=== PATIENT | female | born 1940 | race African-American/Black ===

== ENCOUNTER 2017-07-21 16:26 | Inpatient (IN) | payer MEDICARE, OTHER ==
[~2017-07-21] VITALS: Ht 162.6 cm; Wt 64.6 kg
[2017-07-21 16:50] VITALS: BP 197/91; PULSE 93; RESP 18; TEMP 98.1; O2SAT 99
[2017-07-21] MEDS ORDERED: LORazepam 2 MG/ML VIAL IM ONE (17:15)
[2017-07-21] MEDS ORDERED: HALOPERIDOL LACTATE 5 MG/ML AMP IM ONE (17:15)
[2017-07-21 18:12] LABS: AUTOMATED NEUTROPHIL # 6.6 TH/MM3 (1.8-7.7); BASOPHIL # 0.1 TH/MM3 (0-0.2); BASOPHIL % 0.6 % (0.0-2.0); EOSINOPHIL % 0.3 % (0.0-4.0); HEMOGLOBIN 14.8 GM/DL (11.6-15.3); LYMPH % 30.1 % (9.0-44.0); LYMPHOCYTE # 3.2 TH/MM3 (1.0-4.8); MEAN CELL VOLUME 90.3 FL (80.0-100.0); MEAN CORPUSCULAR HEMOGLOBIN 31.9 PG (27.0-34.0); MEAN CORPUSCULAR HGB CONC 35.4 % (32.0-36.0); MEAN PLATELET VOLUME 7.9 FL (7.0-11.0); MONOCYTE # 0.6 TH/MM3 (0-0.9); PLATELET COUNT 316 TH/MM3 (150-450); RED BLOOD COUNT 4.65 MIL/MM3 (4.00-5.30); RED CELL DISTRIBUTION WIDTH 14.1 % (11.6-17.2); WHITE BLOOD COUNT 10.5 TH/MM3 (4.0-11.0)
[2017-07-21 18:23] LABS: ALBUMIN 3.9 GM/DL (3.4-5.0); AST (GOT) 17 U/L (15-37); BICARBONATE 23.7 MEQ/L (21.0-32.0); BLOOD UREA NITROGEN 13 MG/DL (7-18); CALCIUM 9.4 MG/DL (8.5-10.1); CHLORIDE 106 MEQ/L (98-107); CREATININE 1.31 MG/DL (0.50-1.00); GLOMERULAR FILTRATION RATE 48 ML/MIN (>89); GLUCOSE,RANDOM 102 MG/DL (74-106); SODIUM (NA) 140 MEQ/L (136-145)
[2017-07-21 18:24] LABS: ALT (GPT) 18 U/L (10-53)
[2017-07-21 18:26] LABS: ALKALINE PHOSPHATASE 60 U/L (45-117); TOTAL BILIRUBIN ADULT 0.5 MG/DL (0.2-1.0); TOTAL PROTEIN 7.6 GM/DL (6.4-8.2)
--- NOTE | 2017-07-21 19:35 | PD ---
HPI . Psychosis Chief Complaint: Psychiatric Symptoms Time Seen by Provider: 16:59 Travel History International Travel<30 days: No Contact w/Intl Traveler<30days: No Traveled to known affect area: No History of Present Illness HPI This patient is brought in by PD under a Vaughan Act. The Vaughan Act states that she was at the airport acting strangely. The police superintendent at the airport asked her where she wanted to fly and she stated "anywhere." She did not have a ticket. She seemed confused to the officer. She told the officers that they were "hitmen" and that she believes that they were going to sell her brain for money. They've been initiated a vaughan act and brought her to the hospital for further evaluation. Further history from this patient is not felt to be reliable. She was talking about how the [employer] was using her blood run machinery that could spy on people. She believes that the [employer] has been using her blood since 1981. PFSH Past Medical History Medical History: Unable to Obtain Tetanus Vaccination: > 5 Years Influenza Vaccination: No ?: Not Past Surgical History Surgical History: No Previous Surgery Social History Alcohol Use: No Tobacco Use: Yes (1 PPD) Substance Use: No Allergies-Medications (Allergen,Severity, Reaction): Coded Allergies: No Known Allergies (Verified Allergy, Unknown, 07/21/17) Reported Meds & Prescriptions Reported Meds & Active Scripts Active Active Prescriptions or Reported Medications Unobtainable Review of Systems ROS Limitations: Psychotic Physical Exam Narrative GENERAL: Awake and alert and in no acute distress. SKIN: Warm and dry. Good color and turgor. HEAD: Normocephalic/atraumatic. EYES: Pupils are equal. Extraocular movements are intact. NECK: Normal range of motion. CARDIOVASCULAR: Regular rate and rhythm. RESPIRATORY: Nonlabored respirations. Lungs are clear. ABDOMEN: Abdomen is soft. MUSCULOSKELETAL: Atraumatic. NEUROLOGICAL: Alert. No obvious cranial nerve deficits. She is moving all 4 extremities equally. PSYCHIATRIC: She is delusional. Her behavior occasionally escalates. She is very fearful of having her blood drawn. Data Data Last Documented VS Vital Signs Date Time Temp Pulse Resp B/P (MAP) Pulse Ox O2 Delivery O2 Flow Rate FiO2 07/21/17 16:55 87 18 07/21/17 16:50 98.1 197/91 (126) 99 Orders Orders Lorazepam Inj (Ativan Inj) (07/21/17 17:15) Haloperidol Inj (Haldol Inj) (07/21/17 17:15) Restraints Non-Violent ALICIA.Q3H (07/21/17 17:15) Complete Blood Count With Diff (07/21/17 17:16) Comprehensive Metabolic Panel (07/21/17 17:16) Iv Access Insert/Monitor (07/21/17 17:16) Cath For Specimen (07/21/17 17:16) Psych Screen (07/21/17 17:16) Drug Screen, Random Urine (07/21/17 17:16) Alcohol (Ethanol) (07/21/17 17:16) Ct Brain W/O Iv Contrast(Rout) (07/21/17 17:16) Labs Laboratory Tests Test 07/21/17 17:35 07/21/17 17:45 White Blood Count 10.5 TH/MM3 Red Blood Count 4.65 MIL/MM3 Hemoglobin 14.8 GM/DL Hematocrit 42.0 % Mean Corpuscular Volume 90.3 FL Mean Corpuscular Hemoglobin 31.9 PG Mean Corpuscular Hemoglobin Concent 35.4 % Red Cell Distribution Width 14.1 % Platelet Count 316 TH/MM3 Mean Platelet Volume 7.9 FL Neutrophils (%) (Auto) 63.0 % Lymphocytes (%) (Auto) 30.1 % Monocytes (%) (Auto) 6.0 % Eosinophils (%) (Auto) 0.3 % Basophils (%) (Auto) 0.6 % Neutrophils # (Auto) 6.6 TH/MM3 Lymphocytes # (Auto) 3.2 TH/MM3 Monocytes # (Auto) 0.6 TH/MM3 Eosinophils # (Auto) 0.0 TH/MM3 Basophils # (Auto) 0.1 TH/MM3 CBC Comment DIFF FINAL Differential Comment Blood Urea Nitrogen 13 MG/DL Creatinine 1.31 MG/DL Random Glucose 102 MG/DL Total Protein 7.6 GM/DL Albumin 3.9 GM/DL Calcium Level 9.4 MG/DL Alkaline Phosphatase 60 U/L Aspartate Amino Transf (AST/SGOT) 17 U/L Alanine Aminotransferase (ALT/SGPT) 18 U/L Total Bilirubin 0.5 MG/DL Sodium Level 140 MEQ/L Potassium Level 4.0 MEQ/L Chloride Level 106 MEQ/L Carbon Dioxide Level 23.7 MEQ/L Anion Gap 10 MEQ/L Estimat Glomerular Filtration Rate 48 ML/MIN Ethyl Alcohol Level LESS THAN 3 MG/DL Urine Opiates Screen NEG Urine Barbiturates Screen NEG Urine Amphetamines Screen NEG Urine Benzodiazepines Screen NEG Urine Cocaine Screen NEG Urine Cannabinoids Screen NEG MDM Medical Decision Making Medical Screen Exam Complete: Yes Emergency Medical Condition: Yes Differential Diagnosis Differential diagnosis of psychosis includes but is not limited to schizophrenia , schizoaffective disorder, bipolar disorder, intoxication, substance abuse, dementia Narrative Course This patient presents to us as a Vaughan Act. She is obviously psychotic. She has no previous visits here. Therefore, in addition to doing the routine blood work for medical clearance, I have ordered a CT of her brain. CBC & BMP Diagram 07/21/17 17:35 Total Protein 7.6, Albumin 3.9, Calcium Level 9.4, Alkaline Phosphatase 60, Aspartate Amino Transf (AST/SGOT) 17, Alanine Aminotransferase (ALT/SGPT) 18, Total Bilirubin 0.5 Tox screen is negative. CT: 1. Limited examination due to patient motion. 2. No gross acute intracranial abnormality. She is medically clear for psychiatric evaluation. Diagnosis Primary Impression: Psychosis Qualified Codes: F29 - Unspecified psychosis not due to a substance or known physiological condition Scripts Unable to Obtain Active Prescriptions or Reported Meds Condition: Adelaida Bennett MD Jul 21, 2017 19:35
--- NOTE | 2017-07-21 19:38 | RADRPT ---
EXAM DATE/TIME: 07/21/2017 19:23 [facility] COMPARISON: No previous studies available for comparison. INDICATIONS : Altered mental status with confusion. RADIATION DOSE: 34.39 CTDIvol (mGy) MEDICAL HISTORY : None SURGICAL HISTORY : None. ENCOUNTER: Initial ACUITY: 1 day PAIN SCALE: 2/10 LOCATION: Bilateral cranial TECHNIQUE: Multiple contiguous axial images were obtained of the head. Using automated exposure control and adj ustment of the mA and/or kV according to patient size, radiation dose was kept as low as reasonably a chievable to obtain optimal diagnostic quality images. DICOM format image data is available electro nically for review and comparison. FINDINGS: Examination is limited by patient motion. CEREBRUM: Moderate diffuse cerebral volume loss. The ventricles are normal for degree of atrophy. No evidence of midline shift, gross mass lesion, significant hemorrhage or acute infarction. No extra-axial flui d collections are seen. POSTERIOR FOSSA: The cerebellum and brainstem are intact. The 4th ventricle is midline. The cerebellopontine angle i s unremarkable. EXTRACRANIAL: The visualized portion of the orbits is intact. SKULL: The calvaria is intact. No evidence of skull fracture. CONCLUSION: 1. Limited examination due to patient motion. 2. No gross acute intracranial abnormality. Baron Robertson MD on July 21, 2017 at 19:35 Board Certified Radiologist. This report was verified electronically.
[2017-07-21] MEDS ORDERED: IBUP-1129 PO (22:19)
[2017-07-21] MEDS ORDERED: SULF1TAB23 PO (22:19)
[2017-07-21] MEDS ORDERED: GUAI1SOL7 PO (22:19)
[2017-07-21] MEDS ORDERED: ASPI-183 PO (22:19)
[2017-07-22 05:30] VITALS: BP 141/72; PULSE 69; RESP 18; O2SAT 98
[2017-07-22 11:40] VITALS: BP 138/70; PULSE 70; RESP 18; O2SAT 97
[2017-07-22] MEDS ORDERED: traZODone HCL 50 MG TAB PO PRN (13:00)
[2017-07-22] MEDS ORDERED: MAGNESIUM HYDROXIDE SUSP 30 ML CUP PO PRN (13:00)
[2017-07-22] MEDS ORDERED: diphenhydrAMINE HCL 50 MG/ML VIAL IM PRN (13:00)
[2017-07-22] MEDS ORDERED: LORazepam 2 MG/ML VIAL IM PRN (13:00)
[2017-07-22] MEDS ORDERED: diphenhydrAMINE HCL 50 MG CAP PO PRN (13:00)
[2017-07-22] MEDS ORDERED: ALUMINUM/MAGNESIUM/SIMETH 30 ML CUP PO PRN (13:00)
[2017-07-22] MEDS ORDERED: LORazepam 1 MG TAB PO PRN (13:00)
[2017-07-22] MEDS ORDERED: guaiFENesin/CODEINE SYRUP 200 MG/20 MG/10 ML CUP PO PRN (13:15)
--- NOTE | 2017-07-22 13:21 | HHI.HP ---
Provisional Diagnosis Admission Date Jul 22, 2017 at 13:00 [place] I. Paranoid schizophrenia Certification of Person's Competence To Provide Express and Informed Consent I have personally examined Whit Iyer , a person being served at [facility] on, Jul 22, 2017 13:04. Express and informed consent means consent voluntarily given in writing, by a competent person, after sufficient explanation and disclosure of the subject matter involved to enable the person to make a knowing and willful decision without any element of force, fraud, deceit, duress, or other form of constraint or coercion. This person is 18 years of age or older, is not now known to be incompetent to consent to treatment with a guardian advocate, and does not have a health care surrogate or proxy currently making medical treatment decisions. I have found this person to be one of the following: [] Competent to provide express and informed consent, as defined above, for voluntary admission to this facility and is competent to provide express and informed consent for treatment. He/she has the consistent capacity to make well reasoned, willful, and knowing decisions concerning his or her medical or mental health treatment. The person fully and consistently understands the purpose of the admission for examination/placement and is fully capable of personally exercising all rights assured [place] [x] Incompetent to provide express and informed consent to voluntary admission, and this is incompetent to provide express and informed consent to treatment. The person must be transferred to involuntary status and a petition for a guardian advocate filed with the Circuit Court. [] Refusing to provide express and informed consent to voluntary admission but is competent to provide express and informed consent for treatment. The person must be discharged or transferred to involuntary status. Form shall be completed within 24 hours of a person's arrival at the receiving facility and filed in the clinical record of each person: 1. Admitted on a voluntary basis 2. Permitted to provide express and informed consent to his/her own treatment 3. Allowed to transfer from involuntary to voluntary status 4. Prior to permitting a person to consent to his or her own treatment after having been previously found incompetent to consent to treatment. History of Present Illness Capacity: Lacks Capacity HPI 77-year-old female, [place] acted by law enforcement at the local airport. Patient had apparently packed her bags, was stating she wanted to go "anywhere" but did not have a ticket and appeared confused, psychotic and paranoid. She told the officer there were hit men trying to sell her brain for money. She also indicated others were trying to harm her and that there were cameras watching her. Upon interview, the patient is not aware of the current day of the week, date, year or place where she is currently being evaluated. She does not know the current president. The patient is reportedly homeless but stays in hotels and wanders from place to place and state to state. The patient is felt to be an unreliable historian however. She claims at this time that she does not have a mental illness and that the diagnosis of schizophrenia, contained on her record , is from [place]. She demonstrates loose associations and remarks that she must have that schizophrenia diagnosis removed as it is a lie committed by the people who are trying to harm her, steal from her, etc. She is obviously unable to care for herself and quite delusional. The patient does have adult children who live out of state and her daughter was contacted by our emergency department staff to [phone], [place]. Patient's daughter confirms the patient's mental illness and inappropriate behavior. No evidence of alcohol or illicit drugs. Review of Systems ROS Limitations: Clinical Condition Psychiatric: COMPLAINS OF: Confusion, Delusions Except as stated in HPI: all other systems reviewed are Neg Past Psych History Psychological trauma history Unknown psychological trauma. Patient poor historian. Violence risk - others (6 mos) Minimal to moderate. Violence risk - self (6 mos) Moderate to high. Patient is confused enough to do dangerous things, including walking into traffic. Substance Abuse History Drugs/Alcohol past 12 months Denied Past Family Social History Coded Allergies: No Known Allergies (Verified Allergy, Unknown, 07/21/17) Reported Medications Sulfamethoxazole-Trimethoprim (Sulfamethoxazole-Trimethoprim) 800-160 Mg Tab, 1 TAB PO BID for Infection, TAB 0 Refills 07/21/17 Guaifenesin-Codeine Liq (Virtussin A-C Liq) 100-10 Mg/5 Ml Soln, 5-10 ML PO Q8H Y for COUGH, #1 BOTTLE 0 Refills 07/21/17 Ibuprofen (Motrin Ib) 200 Mg Tablet, PO 07/21/17 Aspirin (Aspirin) 325 Mg Tab, 325 MG PO DAILY, #30 TAB 0 Refills 07/21/17 Current Medications Medications (Trade) Dose Ordered Sig/Yasmany Route Start Time Stop Time Status Last Admin (Ativan) 1 mg Q6H PRN PO 07/22/17 13:00 UNV (Ativan Inj) 1 mg Q6H PRN IM 07/22/17 13:00 UNV (Benadryl) 50 mg Q6H PRN PO 07/22/17 13:00 UNV (Benadryl Inj) 50 mg Q6H PRN IM 07/22/17 13:00 UNV (Tylenol) 650 mg Q4H PRN PO 07/22/17 13:00 (Milk Of Magnesia Liq) 30 ml DAILY PRN PO 07/22/17 13:00 (Mag-Al Plus Susp Liq) 30 ml Q6H PRN PO 07/22/17 13:00 (Desyrel) 50 mg HS PRN PO 07/22/17 13:00 UNV Family Psych History Positive for mental illness of a psychotic subtype. 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 She states she does not live there and intends to move back to [place]. She is unemployed and obviously disabled mentally from the ability to work. She does receive Social Security disability. She states she is a . She does have children who are supportive but unable to assist her at all times. Patient apparently travels about "at [facility]". Patient's Strengths (min. 2) Verbal and has access to healthcare. Physical Exam GENERAL: SKIN: Warm and dry. HEAD: Normocephalic. EYES: No scleral icterus. No injection or drainage. NECK: Supple, trachea midline. No JVD or lymphadenopathy. CARDIOVASCULAR: Regular rate and rhythm without murmurs, gallops, or rubs. RESPIRATORY: Breath sounds equal bilaterally. No accessory muscle use. GASTROINTESTINAL: Abdomen soft, non-tender, nondistended. MUSCULOSKELETAL: No cyanosis, or edema. BACK: Nontender without obvious deformity. No CVA tenderness. Vital Signs Vital Signs Date Time Temp Pulse Resp B/P (MAP) Pulse Ox O2 Delivery O2 Flow Rate FiO2 07/22/17 11:40 70 18 138/70 (92) 97 Room Air 07/21/17 16:50 98.1 Lab Results Test 07/21/17 17:35 07/21/17 17:45 White Blood Count 10.5 TH/MM3 Red Blood Count 4.65 MIL/MM3 Hemoglobin 14.8 GM/DL Hematocrit 42.0 % Mean Corpuscular Volume 90.3 FL Mean Corpuscular Hemoglobin 31.9 PG Mean Corpuscular Hemoglobin Concent 35.4 % Red Cell Distribution Width 14.1 % Platelet Count 316 TH/MM3 Mean Platelet Volume 7.9 FL Neutrophils (%) (Auto) 63.0 % Lymphocytes (%) (Auto) 30.1 % Monocytes (%) (Auto) 6.0 % Eosinophils (%) (Auto) 0.3 % Basophils (%) (Auto) 0.6 % Neutrophils # (Auto) 6.6 TH/MM3 Lymphocytes # (Auto) 3.2 TH/MM3 Monocytes # (Auto) 0.6 TH/MM3 Eosinophils # (Auto) 0.0 TH/MM3 Basophils # (Auto) 0.1 TH/MM3 CBC Comment DIFF FINAL Differential Comment Blood Urea Nitrogen 13 MG/DL Creatinine 1.31 MG/DL Random Glucose 102 MG/DL Total Protein 7.6 GM/DL Albumin 3.9 GM/DL Calcium Level 9.4 MG/DL Alkaline Phosphatase 60 U/L Aspartate Amino Transf (AST/SGOT) 17 U/L Alanine Aminotransferase (ALT/SGPT) 18 U/L Total Bilirubin 0.5 MG/DL Sodium Level 140 MEQ/L Potassium Level 4.0 MEQ/L Chloride Level 106 MEQ/L Carbon Dioxide Level 23.7 MEQ/L Anion Gap 10 MEQ/L Estimat Glomerular Filtration Rate 48 ML/MIN Ethyl Alcohol Level LESS THAN 3 MG/DL Urine Opiates Screen NEG Urine Barbiturates Screen NEG Urine Amphetamines Screen NEG Urine Benzodiazepines Screen NEG Urine Cocaine Screen NEG Urine Cannabinoids Screen NEG Mental Status Examination Appearance: Disheveled Consciousness: Alert Orientation: Person Motor Activity: Normal gait Speech: Hesitant Language: Perseveration Fund of Knowledge: Adequate Attention and Concentration: Easily Distracted Memory: Impaired Mood: Anxious Affect: Anxious Thought Process & Associations: Loose associations Thought Content: Bizarre thinking, Delusional Hallucination Type: None Delusion Type: Paranoid Suicidal Ideation: No Suicidal Plan: No Suicidal Intention: No Homicidal Ideation: No Homicidal Plan: No Homicidal Intention: No Insight: Poor Judgment: Poor Assessment & Plan Problem List: (1) Schizophrenia, paranoid type ICD Codes: F20.0 - Paranoid schizophrenia Assessment & Plan Estimated LOS: days. 77-year-old female with long history of paranoid schizophrenia, obviously paranoid, obviously confused and disoriented and obviously unable to care for herself. For these reasons, the patient is being admitted for further evaluation and treatment. This physician has asked for a hep us consult as the patient appears to have been prescribed an antibiotic and a daily aspirin for blood thinning. Due to the fact she is a poor historian, this physician is concerned about her underlying physical maladies. This physician also ordered a CBC and comprehensive metabolic panel to determine if any infectious process or metabolic process is causing or contributing to the patient's psychosis. Also ordered were thyroid-stimulating hormone levels, vitamin B-12 and vitamin D levels, as deficiencies in these areas can cause or contribute to her confusion and psychosis. Furthermore, this physician initiated civil commitment procedure with guardian advocate as the patient is felt not to be competent to provide informed consent. Additionally, an EKG is ordered prior to the administration of psychotropic medicines which might adversely affect the conduction system of her heart. This physician spoke with the patient's nurse, Elizabeth, regarding her recent behavior. Case management is also being involved to assist with further information gathering and appropriate disposition planning. Brian Villagomez MD Jul 22, 2017 13:21
--- NOTE | 2017-07-22 14:48 | PD.PSY.CON ---
Provisional Diagnosis Admission Date Jul 22, 2017 at 13:00 Eunice I. Paranoid schizophrenia History of Present Illness Service Psychiatry Consult Requested By Dr. Villagomez Reason for Consult Second opinion Primary Care Physician No Primary Care Physician HPI 77-year-old female, [place] acted by law enforcement at the local airport. Patient had apparently packed her bags, was stating she wanted to go "anywhere" but did not have a ticket and appeared confused, psychotic and paranoid. She told the officer there were hit men trying to sell her brain for money. She also indicated others were trying to harm her and that there were cameras watching her.Upon interview, the patient is not aware of the current day of the week, date, year or place where she is currently being evaluated. She does not know the current president. The patient is reportedly homeless but stays in hotels and wanders from place to place and state to state. The patient is felt to be an unreliable historian however. She claims at this time that she does not have a mental illness and that the diagnosis of schizophrenia , contained on her record, is from [place]. She demonstrates loose associations and remarks that she must have that schizophrenia diagnosis removed as it is a lie committed by the people who are trying to harm her, steal from her, etc. She is obviously unable to care for herself and quite delusional. The patient does have adult children who live out of state and her daughter was contacted by our emergency department staff to [phone], Phuong Smith. Patient's daughter confirms the patient's mental illness and inappropriate behavior. No evidence of alcohol or illicit drugs. The Patient is a 77 year-old woman, homeless, unemployed, single, with psychiatric history fo schizophrenia, who was brought in by PD under a Vaugh[place] Act. The [place] Act states that she was at the airport acting strangely. The patrol police lieutenant at the airport asked her where she wanted to fly and she stated "anywhere." She did not have a ticket. She seemed confused to the officer. She told the officers that they were "hitmen" and that she believes that they were going to sell her brain for money. They've been initiated a vaughan act and brought her to the hospital for further evaluation. She was consulted to me for second opinion. She is oppositional and irritable. She says the police brought her here "accusing me of being lost, but he true is they were harassing me". She is very talkative with loosening of associations and derailment. Review of Systems Constitutional: DENIES: Diaphoretic episodes, Fatigue, Fever, Weight gain, Weight loss, Chills, Dizziness, Change in appetite, Night Sweats Endocrine: DENIES: Abnorml menstrual pattern, Heat/cold intolerance, Polydipsia , Polyuria, Polyphagia Eyes: DENIES: Blurred vision, Diplopia, Eye inflammation, Eye pain, Vision loss , Photosensitivity, Double Vision Ears, nose, mouth, throat: DENIES: Tinnitus, Hearing loss, Vertigo, Nasal discharge, Oral lesions, Throat pain, Hoarseness, Ear Pain, Running Nose, Epistaxis, Sinus Pain, Toothache, Odynophagia Respiratory: DENIES: Apneas, Cough, Snoring, Wheezing, Hemoptysis, Sputum production, Shortness of breath Cardiovascular: DENIES: Chest pain, Palpitations, Syncope, Dyspnea on Exertion , PND, Lower Extremity Edema, Orthopnea, Claudication Gastrointestinal: DENIES: Abdominal pain, Black stools, Bloody stools, Constipation, Diarrhea, Nausea, Vomiting, Difficulty Swallowing, Anorexia Genitourinary: DENIES: Abnormal vaginal bleeding, Dysmenorrhea, Dyspareunia, Sexual dysfunction, Urinary frequency, Urinary incontinence, Urgency, Hematuria , Dysuria, Nocturia, Vaginal discharge Musculoskeletal: DENIES: Joint pain, Muscle aches, Stiffness, Joint Swelling, Back pain, Neck pain Integumentary: DENIES: Abnormal pigmentation, Pruritus, Rash, Nail changes, Breast masses, Breast skin changes, Nipple discharge Hematologic/lymphatic: DENIES: Bruising, Lymphadenopathy Immunologic/allergic: DENIES: Eczema, Urticaria Neurologic: DENIES: Abnormal gait, Headache, Localized weakness, Paresthesias, Seizures, Speech Problems, Tremor, Poor Balance Psychiatric: COMPLAINS OF: Delusions Past Family Social History Coded Allergies: No Known Allergies (Verified Allergy, Unknown, 07/21/17) Reported Medications Sulfamethoxazole-Trimethoprim (Sulfamethoxazole-Trimethoprim) 800-160 Mg Tab, 1 TAB PO BID for Infection, TAB 0 Refills 07/21/17 Guaifenesin-Codeine Liq (Virtussin A-C Liq) 100-10 Mg/5 Ml Soln, 5-10 ML PO Q8H Y for COUGH, #1 BOTTLE 0 Refills 07/21/17 Ibuprofen (Motrin Ib) 200 Mg Tablet, PO 07/21/17 Aspirin (Aspirin) 325 Mg Tab, 325 MG PO DAILY, #30 TAB 0 Refills 07/21/17 Current Medications Medications (Trade) Dose Ordered Sig/Yasmany Route Start Time Stop Time Status Last Admin (Ativan) 1 mg Q6H PRN PO 07/22/17 13:00 (Ativan Inj) 1 mg Q6H PRN IM 07/22/17 13:00 (Benadryl) 50 mg Q6H PRN PO 07/22/17 13:00 (Benadryl Inj) 50 mg Q6H PRN IM 07/22/17 13:00 (Tylenol) 650 mg Q4H PRN PO 07/22/17 13:00 (Milk Of Magnesia Liq) 30 ml DAILY PRN PO 07/22/17 13:00 (Mag-Al Plus Susp Liq) 30 ml Q6H PRN PO 07/22/17 13:00 (Desyrel) 50 mg HS PRN PO 07/22/17 13:00 (Aspirin) 325 mg DAILY PO 07/23/17 09:00 (Robitussin Ac 200-20 Mg/10 ml Liq) 10 ml Q8H PRN PO 07/22/17 13:15 07/25/17 07:00 Patient's Strengths (min. 2) Verbal and has access to healthcare. Physical Exam Vital Signs Vital Signs Date Time Temp Pulse Resp B/P (MAP) Pulse Ox O2 Delivery O2 Flow Rate FiO2 07/22/17 11:40 70 18 138/70 (92) 97 Room Air 07/21/17 16:50 98.1 Lab Results Test 07/21/17 17:35 07/21/17 17:45 White Blood Count 10.5 TH/MM3 Red Blood Count 4.65 MIL/MM3 Hemoglobin 14.8 GM/DL Hematocrit 42.0 % Mean Corpuscular Volume 90.3 FL Mean Corpuscular Hemoglobin 31.9 PG Mean Corpuscular Hemoglobin Concent 35.4 % Red Cell Distribution Width 14.1 % Platelet Count 316 TH/MM3 Mean Platelet Volume 7.9 FL Neutrophils (%) (Auto) 63.0 % Lymphocytes (%) (Auto) 30.1 % Monocytes (%) (Auto) 6.0 % Eosinophils (%) (Auto) 0.3 % Basophils (%) (Auto) 0.6 % Neutrophils # (Auto) 6.6 TH/MM3 Lymphocytes # (Auto) 3.2 TH/MM3 Monocytes # (Auto) 0.6 TH/MM3 Eosinophils # (Auto) 0.0 TH/MM3 Basophils # (Auto) 0.1 TH/MM3 CBC Comment DIFF FINAL Differential Comment Blood Urea Nitrogen 13 MG/DL Creatinine 1.31 MG/DL Random Glucose 102 MG/DL Total Protein 7.6 GM/DL Albumin 3.9 GM/DL Calcium Level 9.4 MG/DL Alkaline Phosphatase 60 U/L Aspartate Amino Transf (AST/SGOT) 17 U/L Alanine Aminotransferase (ALT/SGPT) 18 U/L Total Bilirubin 0.5 MG/DL Sodium Level 140 MEQ/L Potassium Level 4.0 MEQ/L Chloride Level 106 MEQ/L Carbon Dioxide Level 23.7 MEQ/L Anion Gap 10 MEQ/L Estimat Glomerular Filtration Rate 48 ML/MIN Ethyl Alcohol Level LESS THAN 3 MG/DL Urine Opiates Screen NEG Urine Barbiturates Screen NEG Urine Amphetamines Screen NEG Urine Benzodiazepines Screen NEG Urine Cocaine Screen NEG Urine Cannabinoids Screen NEG Mental Status Examination Appearance: Disheveled Consciousness: Alert Orientation: Person Motor Activity: Normal gait Speech: Hesitant Language: Perseveration Fund of Knowledge: Adequate Attention and Concentration: Easily Distracted Memory: Impaired Mood: Anxious Affect: Anxious Thought Process & Associations: Loose associations Thought Content: Bizarre thinking, Delusional Hallucination Type: None Delusion Type: Paranoid Suicidal Ideation: No Suicidal Plan: No Suicidal Intention: No Homicidal Ideation: No Homicidal Plan: No Homicidal Intention: No Insight: Poor Judgment: Poor Assessment & Plan Problem List: (1) Schizophrenia, paranoid type ICD Codes: F20.0 - Paranoid schizophrenia Assessment & Plan: I have seen and examined this patient in the ER. Reviwed documentation and I agree and concur with Dr. Villagomez's assessment and plan. Assessment & Plan Estimated LOS: Juwan Pimentel MD Jul 22, 2017 14:48
[2017-07-22 15:25] VITALS: BP 129/72
[2017-07-22 15:35] VITALS: BP 138/80; PULSE 88; RESP 18; TEMP 98.1; O2SAT 95
--- NOTE | 2017-07-22 15:37 | PD.CONS ---
[facility] By Dr. Vill[facility] Reason for Consult "77 year old female with history of schizophrenia, poor historian, but history of medical issues. Please evaluate and treat as necessary." Primary Care Physician No Primary Care Physician Diagnoses: (1) Psychosis (2) Schizophrenia, paranoid type (3) Tobacco abuse (4) Renal insufficiency History of Present Illness Patient is a 77-year-old female with history of schizophrenia who was brought to the emergency department under Vaughan act by the Police Department area and she apparently had been at the airport stating that she was going to fly "anywhere", but did not have a ticket. She then apparently accused the police officers of being hit men. Upon my evaluation of the patient she denies any complaints. States that she has no chronic medical problems and takes no medications regularly. She denies having any surgeries. She denies any family history of medical problems. Review of Systems ROS Limitations: Psychotic Constitutional: DENIES: Fever, Chills, Night Sweats Eyes: DENIES: Blurred vision, Vision loss Ears, nose, mouth, throat: DENIES: Hearing loss Respiratory: DENIES: Cough, Wheezing, Sputum production, Shortness of breath Cardiovascular: DENIES: Chest pain, Palpitations, Dyspnea on Exertion, Lower Extremity Edema Gastrointestinal: DENIES: Abdominal pain, Constipation, Diarrhea, Nausea, Vomiting Genitourinary: DENIES: Urinary frequency, Urinary incontinence, Urgency, Hematuria, Dysuria, Nocturia Musculoskeletal: DENIES: Joint pain, Muscle aches Integumentary: DENIES: Pruritus, Rash Hematologic/lymphatic: DENIES: Bruising Neurologic: DENIES: Headache Past Family Social History Allergies: Coded Allergies: No Known Allergies (Verified Allergy, Unknown, 07/21/17) Past Medical History Schizophrenia Past Surgical History Denies Reported Medications Denies Medication reconciliation obtained by the ER nurse lists Bactrim, aspirin, ibuprofen, and guaifenesin with codeine. Family History Patient denies significant family medical history. Social History She states that she smokes 5 cigarettes per day. Denies alcohol or illicit drug use. Physical Exam Vital Signs Vital Signs Date Time Temp Pulse Resp B/P (MAP) Pulse Ox O2 Delivery O2 Flow Rate FiO2 07/22/17 11:40 70 18 138/70 (92) 97 Room Air 07/22/17 05:30 69 18 141/72 (95) 98 Room Air 07/21/17 16:55 87 18 07/21/17 16:50 98.1 93 18 197/91 (126) 99 Physical Exam GENERAL: Elderly female in no acute distress. HEENT: Normocephalic, atraumatic. Pupils equal, round and reactive. Extraocular movements intact. No scleral icterus. No injection or drainage. Oropharynx is clear. Mucous membranes are moist. CARDIOVASCULAR: Regular rate and rhythm without murmurs, gallops, or rubs. RESPIRATORY: Clear to auscultation. No wheezes, rales, or rhonchi. Breathing is non-labored. GASTROINTESTINAL: Abdomen soft, non-tender, nondistended. EXTREMITIES: No lower extremity edema. No calf tenderness. PSYCH: Alert. Oriented to year, month, city. She is aware that she is in the hospital. Laboratory Laboratory Tests Test 07/21/17 17:35 07/21/17 17:45 White Blood Count 10.5 Red Blood Count 4.65 Hemoglobin 14.8 Hematocrit 42.0 Mean Corpuscular Volume 90.3 Mean Corpuscular Hemoglobin 31.9 Mean Corpuscular Hemoglobin Concent 35.4 Red Cell Distribution Width 14.1 Platelet Count 316 Mean Platelet Volume 7.9 Neutrophils (%) (Auto) 63.0 Lymphocytes (%) (Auto) 30.1 Monocytes (%) (Auto) 6.0 Eosinophils (%) (Auto) 0.3 Basophils (%) (Auto) 0.6 Neutrophils # (Auto) 6.6 Lymphocytes # (Auto) 3.2 Monocytes # (Auto) 0.6 Eosinophils # (Auto) 0.0 Basophils # (Auto) 0.1 CBC Comment DIFF FINAL Differential Comment Blood Urea Nitrogen 13 Creatinine 1.31 Random Glucose 102 Total Protein 7.6 Albumin 3.9 Calcium Level 9.4 Alkaline Phosphatase 60 Aspartate Amino Transf (AST/SGOT) 17 Alanine Aminotransferase (ALT/SGPT) 18 Total Bilirubin 0.5 Sodium Level 140 Potassium Level 4.0 Chloride Level 106 Carbon Dioxide Level 23.7 Anion Gap 10 Estimat Glomerular Filtration Rate 48 Ethyl Alcohol Level LESS THAN 3 Urine Opiates Screen NEG Urine Barbiturates Screen NEG Urine Amphetamines Screen NEG Urine Benzodiazepines Screen NEG Urine Cocaine Screen NEG Urine Cannabinoids Screen NEG Result Diagram: 07/21/17 1735 07/21/17 1735 Imaging Last Impressions Head CT 07/21/17 1716 Signed Impressions: Service Date/Time: Friday, July 21, 2017 19:23 - CONCLUSION: 1. Limited examination due to patient motion. 2. No gross acute intracranial abnormality. Baron Robertson MD Assessment and Plan Assessment and Plan 1. Schizophrenia, psychosis: Patient admitted under Vaughan act. Management per psychiatry. CT of the head shows no gross acute intracranial abnormality, but is limited due to patient motion. 2. The patient denies any chronic medical problems. She states that she does not take any medications. The ER nurse last night documented in the patient's medication reconciliation that she takes Bactrim and aspirin. I was not able to obtain any further information regarding any possible infection from the patient. At this point is undetermined when she was given the Bactrim and why she was prescribed antibiotic. No apparent signs of infection at this time. Patient is afebrile. White blood cell count is within normal limits. 3. Renal insufficiency: Uncertain if this is acute or chronic as there are no labs available for comparison. 4. Elevated blood pressure: The patient's blood pressure was elevated initially on presentation to the ER. This could be secondary to agitation. Most recent blood pressure documented is much better. Monitor vital signs. Problem Qualifiers (1) Psychosis: Qualified Codes: F29 - Unspecified psychosis not due to a substance or known physiological condition Jt Manjarrez MD Jul 22, 2017 15:37
[2017-07-23 05:46] VITALS: BP 143/63; PULSE 75; RESP 16; TEMP 98.3; O2SAT 97
[2017-07-23] MEDS: ACETAMINOPHEN 325 MG TAB PO PRN (06:55)
--- NOTE | 2017-07-23 08:16 | HHI.PYPN ---
Subjective Remarks Patient was seen today for psychiatric reevaluation. Chart reviewed. Vital signs and labs reviewed. Hospitalist consult appreciated. Case was discussed with nurse in charge. On psychiatric evaluation patient is found in her bed sleeping. She is easily arousable. Calm, superficially cooperative, irritable. She says that she prefers not to talk to me because "you have making speakerphone with an amplifier". She says that "I do not trust this placed, there are camaras microphones all over watching me". Patient says that she wants to be released "because I want to leave [place] and go to another state". At times the patient becomes very disorganized and tangential and needs to be redirected. She is oriented 3, without no attention deficit, no fluctuation of consciousness. She denies being diagnosed with schizophrenia in the past and refused to take medications. As per nursing team, the patient has been very paranoid and suspicious in the unit, internally stimulated, but no agitated or aggressive. Review of Systems Constitutional: DENIES: Diaphoretic episodes, Fatigue, Fever, Weight gain, Weight loss, Chills, Dizziness, Change in appetite, Night Sweats Endocrine: DENIES: Abnorml menstrual pattern, Heat/cold intolerance, Polydipsia , Polyuria, Polyphagia Eyes: DENIES: Blurred vision, Diplopia, Eye inflammation, Eye pain, Vision loss , Photosensitivity, Double Vision Ears, nose, mouth, throat: DENIES: Tinnitus, Hearing loss, Vertigo, Nasal discharge, Oral lesions, Throat pain, Hoarseness, Ear Pain, Running Nose, Epistaxis, Sinus Pain, Toothache, Odynophagia Respiratory: DENIES: Apneas, Cough, Snoring, Wheezing, Hemoptysis, Sputum production, Shortness of breath Cardiovascular: DENIES: Chest pain, Palpitations, Syncope, Dyspnea on Exertion , PND, Lower Extremity Edema, Orthopnea, Claudication Gastrointestinal: DENIES: Abdominal pain, Black stools, Bloody stools, Constipation, Diarrhea, Nausea, Vomiting, Difficulty Swallowing, Anorexia Genitourinary: DENIES: Abnormal vaginal bleeding, Dysmenorrhea, Dyspareunia, Sexual dysfunction, Urinary frequency, Urinary incontinence, Urgency, Hematuria , Dysuria, Nocturia, Vaginal discharge Musculoskeletal: DENIES: Joint pain, Muscle aches, Stiffness, Joint Swelling, Back pain, Neck pain Integumentary: DENIES: Abnormal pigmentation, Pruritus, Rash, Nail changes, Breast masses, Breast skin changes, Nipple discharge Hematologic/lymphatic: DENIES: Bruising, Lymphadenopathy Immunologic/allergic: DENIES: Eczema, Urticaria Neurologic: DENIES: Abnormal gait, Headache, Localized weakness, Paresthesias, Seizures, Speech Problems, Tremor, Poor Balance Psychiatric: COMPLAINS OF: Delusions Mental Status Examination Appearance: Disheveled Consciousness: Alert Orientation: Person Motor Activity: Normal gait Speech: Hesitant Language: Perseveration Fund of Knowledge: Adequate Attention and Concentration: Easily Distracted Memory: Impaired Mood: Anxious Affect: Anxious Thought Process & Associations: Loose associations, Tangential Thought Content: Bizarre thinking, Preoccupations, Delusional Hallucination Type: None Delusion Type: Paranoid Suicidal Ideation: No Suicidal Plan: No Suicidal Intention: No Homicidal Ideation: No Homicidal Plan: No Homicidal Intention: No Insight: Fair Judgment: Impulsive Results Vitals/IOs Vital Signs Date Time Temp Pulse Resp B/P (MAP) Pulse Ox O2 Delivery O2 Flow Rate FiO2 07/23/17 05:46 98.3 75 16 143/63 (89) 97 07/22/17 11:40 Room Air Assessment & Plan Problem List: (1) Schizophrenia, paranoid type ICD Codes: F20.0 - Paranoid schizophrenia Assessment & Plan: Patient is acutely delusional, disorganized, paranoid. No collateral information available at the moment. We'll start olanzapine 2.5 mg twice a day for psychosis. Will communicate with hospitalist to discuss the benefit of medication for hypertension. Brief supportive psychotherapy and psychoeducation provided. Labs reviewed. Assessment & Plan Estimated LOS: days Justification for Cont. Inpt. The patient is acutely psychotic, she needs to continue psychiatric hospitalization for stabilization and safety. Juwan Larson MD Jul 23, 2017 08:16
[2017-07-23] MEDS: OLANZapine 2.5 MG TAB PO SCH ×2 (09:00→21:30)
[2017-07-23] MEDS: amLODIPine BESYLATE 5 MG TAB PO SCH (11:15)
[2017-07-23] MEDS: ASPIRIN 325 MG TAB PO SCH (11:45)
--- NOTE | 2017-07-23 14:02 | EKG ---
Date Performed: 07/23/2017 Time Performed: 09:36:18 PTAGE: 77 years EKG: Sinus rhythm POSSIBLE RIGHT ATRIAL ENLARGEMENT RIGHT VENTRICULAR HYPERTROPHY POSSIBLE SEPTAL MYOCARDIAL INFARCTIO N , OF INDETERMINATE AGE ABNORMAL ECG Since PREVIOUS TRACING , no significant change noted PREVIOUS TRACIN07/22/2017 15.06 DOCTOR: Jere Gomez Interpretating Date/Time 07/23/2017 14:00:39
--- NOTE | 2017-07-23 14:02 | EKG ---
Date Performed: 07/22/2017 Time Performed: 15:06:32 PTAGE: 77 years EKG: Sinus rhythm MARKED LEFT AXIS DEVIATION POSSIBLE RIGHT VENTRICULAR CONDUCTION DELAY POSSIBLE SEPTAL MYOCARDIAL IN FARCTION ABNORMAL ECG NO PREVIOUS TRACING DOCTOR: Jere Gomez Interpretating Date/Time 07/23/2017 14:00:57
--- NOTE | 2017-07-23 14:18 | HHI.PR ---
Subjective Remarks Follow-up elevated blood pressure. The patient states that she does not have any medical problems. She denies any history of hypertension. She states that her blood pressure "has always been normal". She states "I don't like it here and I want to go home". She is refusing to have labs drawn. She is refusing antihypertensive medications. She denies chest pain, dyspnea, nausea, vomiting. Objective Vitals Vital Signs Date Time Temp Pulse Resp B/P (MAP) Pulse Ox O2 Delivery O2 Flow Rate FiO2 07/23/17 08:00 14 07/23/17 05:46 98.3 75 16 143/63 (89) 97 07/22/17 15:35 98.1 88 18 138/80 (99) 95 07/22/17 15:25 74 18 129/72 (91) 98 I/O 07/22/17 07/22/17 07/22/17 07/23/17 07/23/17 07/23/17 07:00 15:00 23:00 07:00 15:00 23:00 Intake Total 960 ml Balance 960 ml Intake Oral 960 ml Result Diagram: 07/21/17 1735 07/21/17 1735 Imaging Last Impressions Head CT 07/21/17 1716 Signed Impressions: Service Date/Time: Friday, July 21, 2017 19:23 - CONCLUSION: 1. Limited examination due to patient motion. 2. No gross acute intracranial abnormality. Baron Robertson MD Objective Remarks General: Elderly female in no acute distress. Heart: Regular rate and rhythm. No murmur. Lungs: Clear to auscultation bilaterally. No wheezes, rales, or rhonchi. Breathing is nonlabored. Abdomen: Soft, nontender, nondistended. Extremities: No lower extremity edema. Psych: Alert and oriented. Procedures None Urinary Catheter: No Vascular Central Line Catheter: No A/P Problem List: (1) Psychosis ICD Code: F29 - Unspecified psychosis not due to a substance or known physiological condition Status: Acute (2) Schizophrenia, paranoid type ICD Code: F20.0 - Paranoid schizophrenia (3) Tobacco abuse ICD Code: Z72.0 - Tobacco use (4) Renal insufficiency ICD Code: N28.9 - Disorder of kidney and ureter, unspecified Assessment and Plan 1. Schizophrenia, psychosis: Patient admitted under Vaughan act. Management per psychiatry. CT of the head shows no gross acute intracranial abnormality, but is limited due to patient motion. 2. The patient denies any chronic medical problems. She states that she does not take any medications. The ER nurse last night documented in the patient's medication reconciliation that she takes Bactrim and aspirin. I was not able to obtain any further information regarding any possible infection from the patient. At this point it is undetermined when she was given the Bactrim and why she was prescribed an antibiotic. No apparent signs of infection at this time. Patient is afebrile. White blood cell count is within normal limits. 3. Renal insufficiency: Uncertain if this is acute or chronic as there are no labs available for comparison. Patient is refusing follow-up labs today. 4. Elevated blood pressure: Blood pressure has been intermittently elevated. Amlodipine 5 mg daily ordered. Patient refusing medications. [facility] will sign off. Please reconsult if needed. Problem Qualifiers (1) Psychosis: Qualified Codes: F29 - Unspecified psychosis not due to a substance or known physiological condition Jt Manjarrez MD Jul 23, 2017 14:18
[2017-07-23 18:00] VITALS: BP 135/65; PULSE 74; RESP 16; TEMP 98; O2SAT 96
[2017-07-24 06:33] VITALS: BP 120/62; PULSE 80; RESP 16; TEMP 97.3; O2SAT 95
[2017-07-24] MEDS: OLANZapine 2.5 MG TAB PO SCH ×2 (09:07→20:32)
[2017-07-24] MEDS: amLODIPine BESYLATE 5 MG TAB PO SCH (09:07)
[2017-07-24] MEDS: ASPIRIN 325 MG TAB PO SCH (09:07)
--- NOTE | 2017-07-24 14:21 | HHI.PYPN ---
Subjective Remarks Pt seen and discussed with staff.Yesterday, pt [place] RN that the airport [place]. Today she told RN that someone was connected to the bones in her vagina and she was trying to pee them away. She refused medication yesterday but today was compliant. No SI/HI Mental Status Examination Appearance: Disheveled Consciousness: Alert Orientation: Person Motor Activity: Normal gait Speech: Hesitant Language: Perseveration Fund of Knowledge: Adequate Attention and Concentration: Easily Distracted Memory: Impaired Mood: Anxious Affect: Anxious Thought Process & Associations: Loose associations, Tangential Thought Content: Bizarre thinking, Preoccupations, Delusional Hallucination Type: None Delusion Type: Paranoid Suicidal Ideation: No Suicidal Plan: No Suicidal Intention: No Homicidal Ideation: No Homicidal Plan: No Homicidal Intention: No Insight: Fair Judgment: Impulsive Results Vitals/IOs Vital Signs Date Time Temp Pulse Resp B/P (MAP) Pulse Ox O2 Delivery O2 Flow Rate FiO2 07/24/17 06:33 97.3 80 16 120/62 (81) 95 07/22/17 11:40 Room Air Intake and Output 07/24/17 07/24/17 07/25/17 08:00 16:00 00:00 Intake Total 240 ml 240 ml Balance 240 ml 240 ml Assessment & Plan Problem List: (1) Schizophrenia, paranoid type ICD Codes: F20.0 - Paranoid schizophrenia Assessment & Plan Continue current tx plan. Estimated LOS: days Justification for Cont. Inpt. impairments in reality testing Sarah Fam MD Jul 24, 2017 14:21
[2017-07-25 06:16] VITALS: BP 108/57; PULSE 73; RESP 17; TEMP 97.7; O2SAT 100
[2017-07-25] MEDS: amLODIPine BESYLATE 5 MG TAB PO SCH (09:00)
[2017-07-25] MEDS: ASPIRIN 325 MG TAB PO SCH (09:41)
[2017-07-25] MEDS: OLANZapine 2.5 MG TAB PO SCH ×2 (09:42→21:59)
--- NOTE | 2017-07-25 15:59 | HHI.PYPN ---
Subjective Remarks Pt seen and discussed with staff. She has been less fixated on delusions, but has been paranoid about medications. She initially stated that she was not going to take them but was compliant. She has been out of room and participating in unit activities. She tells a rambling story about being "under mental health accusations for 5 years" in the past. She states that symptoms are due to "speakerphones and amplifiers". She gets agitated during interview with RN and MD and accuses police of using a "diagram" to scan her body. Mental Status Examination Appearance: Disheveled Consciousness: Alert Orientation: Person Motor Activity: Normal gait Speech: Hesitant Language: Perseveration Fund of Knowledge: Adequate Attention and Concentration: Easily Distracted Memory: Impaired Mood: Irritable Affect: Irritable Thought Process & Associations: Loose associations, Tangential Thought Content: Bizarre thinking, Preoccupations, Delusional Hallucination Type: None Delusion Type: Paranoid Suicidal Ideation: No Suicidal Plan: No Suicidal Intention: No Homicidal Ideation: No Homicidal Plan: No Homicidal Intention: No Insight: Fair Judgment: Impulsive Results Vitals/IOs Vital Signs Date Time Temp Pulse Resp B/P (MAP) Pulse Ox O2 Delivery O2 Flow Rate FiO2 07/25/17 06:16 97.7 73 17 108/57 (74) 100 07/22/17 11:40 Room Air Assessment & Plan Problem List: (1) Schizophrenia, paranoid type ICD Codes: F20.0 - Paranoid schizophrenia Assessment & Plan Continue current tx plan. Estimated LOS: days Justification for Cont. Inpt. impairments in reality testing Sarah Fam MD Jul 25, 2017 15:59
[2017-07-25] MEDS: NICOTINE 7 MG/24 HR PATCH T-DERMAL SCH (16:00)
[2017-07-25 16:30] VITALS: BP 135/63; PULSE 63; RESP 18; TEMP 98.3; O2SAT 97
[2017-07-25] MEDS ORDERED: REMOVE OLD PATCH T-DERMAL SCH (21:00)
[2017-07-26 06:03] VITALS: BP 133/73; PULSE 72; RESP 18; TEMP 98; O2SAT 96
[2017-07-26] MEDS: OLANZapine 2.5 MG TAB PO SCH ×2 (09:29→22:12)
[2017-07-26] MEDS: ASPIRIN 325 MG TAB PO SCH (09:29)
[2017-07-26] MEDS: amLODIPine BESYLATE 5 MG TAB PO SCH (09:29)
[2017-07-26] MEDS: REMOVE OLD PATCH T-DERMAL SCH (09:33)
[2017-07-26] MEDS: NICOTINE 7 MG/24 HR PATCH T-DERMAL SCH (09:33)
--- NOTE | 2017-07-26 15:16 | HHI.PYPN ---
Subjective Remarks Patient was seen today for psychiatric reevaluation. This case was discussed with nurse in charge. Documentation from weekend psychiatrist reviewed. On psychiatric evaluation today the patient is suspicious, very paranoid, was sent to be discharged immediately because she doesn't need to be here. She says that she doesn't trust the people in this hospital, she says that while she is here "people are trying to steal my money out there". As per nursing charge, the patient has been acting bizarre, delusional, very paranoid and disorganized , even though she has been compliant with her medications, and no significant side effects reported. The patient is partially oriented in time person and place. Mental Status Examination Appearance: Disheveled Consciousness: Alert Orientation: Person Motor Activity: Normal gait Speech: Hesitant Language: Perseveration Fund of Knowledge: Adequate Attention and Concentration: Easily Distracted Memory: Impaired Mood: Irritable Affect: Irritable Thought Process & Associations: Loose associations, Tangential Thought Content: Bizarre thinking, Preoccupations, Delusional Hallucination Type: None Delusion Type: Paranoid Suicidal Ideation: No Suicidal Plan: No Suicidal Intention: No Homicidal Ideation: No Homicidal Plan: No Homicidal Intention: No Insight: Fair Judgment: Impulsive Results Vitals/IOs Vital Signs Date Time Temp Pulse Resp B/P (MAP) Pulse Ox O2 Delivery O2 Flow Rate FiO2 07/26/17 06:03 98.0 72 18 133/73 (93) 96 07/22/17 11:40 Room Air Assessment & Plan Problem List: (1) Schizophrenia, paranoid type ICD Codes: F20.0 - Paranoid schizophrenia Assessment & Plan Estimated LOS: days Justification for Cont. Inpt. Patient is acutely psychotic, she needs to remain hospitalized for stabilization and safety. Juwan Larson MD Jul 26, 2017 15:16
[2017-07-26 17:00] VITALS: BP 170/74; PULSE 69; RESP 18; TEMP 97.9; O2SAT 98
[2017-07-26] MEDS: ACETAMINOPHEN 325 MG TAB PO PRN (18:13)
[2017-07-27 07:07] VITALS: BP 117/56; PULSE 60; RESP 17; TEMP 97.9; O2SAT 96
[2017-07-27] MEDS: amLODIPine BESYLATE 5 MG TAB PO SCH (08:32)
[2017-07-27] MEDS: ASPIRIN 325 MG TAB PO SCH (08:33)
[2017-07-27] MEDS: REMOVE OLD PATCH T-DERMAL SCH (09:00)
[2017-07-27] MEDS: NICOTINE 7 MG/24 HR PATCH T-DERMAL SCH (09:00)
[2017-07-27] MEDS: OLANZapine 2.5 MG TAB PO SCH ×2 (09:46→20:50)
--- NOTE | 2017-07-27 11:20 | HHI.PYPN ---
Subjective Remarks The patient was seen today for psychiatric reevaluation. Chart reviewed. Case discussed with nurse in charge. On psychiatric evaluation the patient is extremely irritable, angry, stating that she needs to be discharged today "because I need to smoke. I don't want to be my doctor anymore ". She also makes several accusatory statements that the reason we want to keep her here is because we want to take her money and her belongings. Patient has reportedly been very paranoid in the unit, disorganized, verbally hostile with nurses. Has been just partially compliant with her medications. Review of Systems Except as stated in HPI: all other systems reviewed are Neg Mental Status Examination Appearance: Disheveled Consciousness: Alert Orientation: Person Motor Activity: Normal gait Speech: Hesitant Language: Perseveration Fund of Knowledge: Adequate Attention and Concentration: Easily Distracted Memory: Impaired Mood: Angry, Irritable Affect: Irritable Thought Process & Associations: Loose associations, Tangential Thought Content: Bizarre thinking, Preoccupations, Delusional Hallucination Type: None Delusion Type: Paranoid Suicidal Ideation: No Suicidal Plan: No Suicidal Intention: No Homicidal Ideation: No Homicidal Plan: No Homicidal Intention: No Insight: Fair Judgment: Impulsive Results Vitals/IOs Vital Signs Date Time Temp Pulse Resp B/P (MAP) Pulse Ox O2 Delivery O2 Flow Rate FiO2 07/27/17 07:07 97.9 60 17 117/56 (76) 96 Intake and Output 07/27/17 07/27/17 07/28/17 08:00 16:00 00:00 Intake Total 240 ml Balance 240 ml Assessment & Plan Problem List: (1) Schizophrenia, paranoid type ICD Codes: F20.0 - Paranoid schizophrenia Assessment & Plan: Patient continues to be paranoid, verbally hostile, irritable in the unit. Brief supportive psychotherapy and psychoeducation provided. Continue current psychotropic regimen. Continue to encourage the patient to take medications. Assessment & Plan Estimated LOS: days Justification for Cont. Inpt. Patient continues to be acutely psychotic, she needs to continue psychiatric hospitalization for stabilization. Juwan Larson MD Jul 27, 2017 11:20
[2017-07-27 18:53] VITALS: BP 112/53; PULSE 79; RESP 17; TEMP 97.9; O2SAT 100
--- NOTE | 2017-07-28 08:48 | HHI.PYPN ---
Subjective Remarks Patient was seen today for psychiatric reevaluation. Patient is found sleeping , but easily arousable. Patient reports that she feels fine, she continues to be irritable and demanded to be discharged as soon as possible. Patient is fully oriented 3, no fluctuation of consciousness, no attention deficit present. She reports good sleep, good appetite, good level of concentration. She says that her plan is to go back to live with her daughter. She denies suicidal and homicidal ideation, she denies visual and auditory hallucinations. Yesterday the patient took her medication, no behavioral problems reported. Review of Systems Except as stated in HPI: all other systems reviewed are Neg Mental Status Examination Appearance: Disheveled Consciousness: Alert Orientation: Person Motor Activity: Normal gait Speech: Hesitant Language: Perseveration Fund of Knowledge: Adequate Attention and Concentration: Easily Distracted Memory: Impaired Mood: Angry, Irritable Affect: Irritable Thought Process & Associations: Loose associations, Tangential Thought Content: Bizarre thinking, Preoccupations, Delusional Hallucination Type: None Delusion Type: Paranoid Suicidal Ideation: No Suicidal Plan: No Suicidal Intention: No Homicidal Ideation: No Homicidal Plan: No Homicidal Intention: No Insight: Fair Judgment: Impulsive Results Vitals/IOs Vital Signs Date Time Temp Pulse Resp B/P (MAP) Pulse Ox O2 Delivery O2 Flow Rate FiO2 07/27/17 18:53 97.9 79 17 112/53 (72) 100 Assessment & Plan Problem List: (1) Schizophrenia, paranoid type ICD Codes: F20.0 - Paranoid schizophrenia Assessment & Plan: Continue current psychotropic regimen. Continue close monitoring of behavior and mood. Brief supportive psychotherapy provided. Assessment & Plan Estimated LOS: days Justification for Cont. Inpt. Patient has an elevated risk to decompensate at a lower level of care. Juwan Larson MD Jul 28, 2017 08:48
[2017-07-28] MEDS: amLODIPine BESYLATE 5 MG TAB PO SCH (08:59)
[2017-07-28] MEDS: OLANZapine 2.5 MG TAB PO SCH ×2 (09:00→22:04)
[2017-07-28] MEDS: NICOTINE 7 MG/24 HR PATCH T-DERMAL SCH (09:00)
[2017-07-28] MEDS: ASPIRIN 325 MG TAB PO SCH (09:00)
[2017-07-28] MEDS: REMOVE OLD PATCH T-DERMAL SCH (09:00)
[2017-07-28 18:00] VITALS: BP 123/86; PULSE 63; RESP 16; TEMP 97.6; O2SAT 98
[2017-07-29 06:55] VITALS: BP 129/66; PULSE 65; RESP 16; TEMP 98.1; O2SAT 97
[2017-07-29] MEDS: OLANZapine 2.5 MG TAB PO SCH ×2 (08:52→09:06)
[2017-07-29] MEDS: REMOVE OLD PATCH T-DERMAL SCH (08:56)
[2017-07-29] MEDS: NICOTINE 7 MG/24 HR PATCH T-DERMAL SCH (08:56)
[2017-07-29] MEDS: amLODIPine BESYLATE 5 MG TAB PO SCH ×2 (08:56→09:07)
[2017-07-29] MEDS: ASPIRIN 325 MG TAB PO SCH ×2 (08:56→09:06)
[2017-07-29] MEDS ORDERED: OLAN2.5T7 PO (10:39)
[2017-07-29] MEDS ORDERED: AMLO5 PO (10:40)
--- NOTE | 2017-07-29 10:42 | HHI.DS ---
Psychiatry Discharge Summary Inpatient Psychiatric care?: Yes Advance Directive: No Mental Health AdvanceDirective: Yes Health Care Proxy: Yes Admission Admission Date Jul 22, 2017 at 13:00 Admission Diagnosis: (1) Schizophrenia, paranoid type ICD Code: F20.0 - Paranoid schizophrenia Brief History 77-year-old female, [place] acted by law enforcement [place] the local airport. Patient had apparently packed her bags, was stating she wanted to go "anywhere" but did not have a ticket and appeared confused, psychotic and paranoid. She told the officer there were hit men trying to sell her brain for money. She also indicated others were trying to harm her and that there were cameras watching her.Upon interview, the patient is not aware of the current day of the week, date, year or place where she is currently being evaluated. She does not know the current president. The patient is reportedly homeless but stays in hotels and wanders from place to place and state to state. The patient is felt to be an unreliable historian however. She claims at this time that she does not have a mental illness and that the diagnosis of schizophrenia , contained on her record, is from [place]. She demonstrates loose associations and remarks that she must have that schizophrenia diagnosis removed as it is a lie committed by the people who are trying to harm her, steal from her, etc. She is obviously unable to care for herself and quite delusional. The patient does have adult children who live out of state and her daughter was contacted by our emergency department staff to [phone], [place]. Patient's daughter confirms the patient's mental illness and inappropriate behavior. No evidence of alcohol or illicit drugs. The Patient is a 77 year-old woman, homeless, unemployed, single, with psychiatric history fo schizophrenia, who was brought in by PD under a [place] Act. The [place] Act states that she was at the airport acting strangely. The corporate compliance officer at the airport asked her where she wanted to fly and she stated "anywhere." She did not have a ticket. She seemed confused to the officer. She told the officers that they were "hitmen" and that she believes that they were going to sell her brain for money. They've been initiated a [place] act and brought her to the hospital for further evaluation. She was consulted to me for second opinion. She is oppositional and irritable. She says the police brought her here "accusing me of being lost, but he true is they were harassing me". She is very talkative with loosening of associations and derailment. Tobacco Use In Past 30 Days: No Tobacco Past 30 Days Alcohol Use: Never Hospital Course Patient was admitted in the psychiatric floor due to symptomatology of psychosis and confusion. At the beginning of hospitalization patient was very paranoid, disorganized, tangential and reluctant to take medications. Immediate safety measures were taken. Intermediate and psychosocial psychiatric assessment completed. Patient was started in a low dose of olanzapine 2.5 mg twice a day that was titrated up to 5 mg twice a day. At the beginning patient was compliant on and off with medications. But, later on became more adherent. During her hospitalization patient was irritable, oppositional, demanding to be discharged everyday. She never got to the point to become aggressive, but needing multiple redirections. Her family was contacted by medical social consultant to coordinate a safe discharge plan. Patient was mostly reclusive in the unit poorly integrated to individual and group therapies. She was taken to [place] when she was discharged as per seafood process worker order. Results Blood Pressure 129 / 66 Vital Signs Date Time Temp Pulse Resp B/P (MAP) Pulse Ox O2 Delivery O2 Flow Rate FiO2 07/29/17 06:55 98.1 65 16 129/66 (87) 97 Reviewed Summary of Procedures none Imaging Last Impressions Head CT 07/21/17 1716 Signed Impressions: Service Date/Time: Friday, July 21, 2017 19:23 - CONCLUSION: 1. Limited examination due to patient motion. 2. No gross acute intracranial abnormality. Baron Robertson MD Pending results at discharge: No Medications # of Antipsychotic meds at D/C: 1 Approp Antipsych med options 1 - Minimum of three failed multiple trials of monotherapy. 2 - Documented plan to taper to monotherapy due to previous use of multiple meds OR cross-taper in progress at D/C. 3 - Documentation of augmentation of Clozapine. 4 - Justification other than those listed in allowable values 1-3, document here : Discharge Discharge Date: Jul 29, 2017 Discharge Diagnosis: (1) Schizophrenia, paranoid type ICD Code: F20.0 - Paranoid schizophrenia Pt Condition on Discharge: Fair Discharge Disposition: Discharge Home Discharge Instructions Diet Instructions: Heart Healthy Diet Activities you can perform: Weight Bearing as [place] Scheduled Appointment: Discharge Time > 30 minutes Mental Status Examination Appearance: Disheveled Consciousness: Alert Orientation: Person Motor Activity: Normal gait Speech: Hesitant Language: Perseveration Fund of Knowledge: Adequate Attention and Concentration: Easily Distracted Memory: Impaired Mood: Angry, Irritable Affect: Irritable Thought Process & Associations: Loose associations, Tangential Thought Content: Bizarre thinking, Preoccupations, Delusional Hallucination Type: None Delusion Type: Paranoid Suicidal Ideation: No Suicidal Plan: No Suicidal Intention: No Homicidal Ideation: No Homicidal Plan: No Homicidal Intention: No Insight: Fair Judgment: Impulsive Discharge/Advance Care Plan Health Problems: (1) Schizophrenia, paranoid type Goals to promote your health * To prevent worsening of your condition and complications * To maintain your health at the optimal level Directions to meet your goals Take your medications as prescribed Follow your dietary instruction Follow activity as directed Keep your appointments as scheduled Take your immunizations and boosters as scheduled If your symptoms worsen call your PCP, if no PCP go to Urgent Care Center or Emergency Room For 15/02 questions related to your inpatient stay or results of tests pending at discharge, please contact Dr. Juwan Larson at Smoking is Dangerous to Your Health. Avoid second hand smoking Juwan Larson MD Jul 29, 2017 10:42
== END 2017-07-29 12:15 | disposition home or self-care (01) | DRG 885 ==
LOC: NEPD 16:26 → NEDA 07-22 13:00 → H260 07-22 15:47
PROVIDERS: ADMIT Psychiatry & Neurology Psychiatry; ATTEND Psychiatry & Neurology Psychiatry
DX: F20.0 Paranoid schizophrenia (principal); F17.210 Nicotine dependence, cigarettes, uncomplicated; R03.0 Elevated blood-pressure reading, without diagnosis of hypertension; N28.9 Disorder of kidney and ureter, unspecified; Z59.0 Homelessness
CPT/HCPCS: 70450; 80053; 80307; 85025; 93005; 96372; J1630; J2060